=== PATIENT | male | born 1975 | race Two or more races ===

== ENCOUNTER 2025-05-04 10:41 | Emergency (ER) | payer OTHER ==
[~2025-05-04] VITALS: Ht 175.3 cm; Wt 96.2 kg
[2025-05-04 11:10] VITALS: O2SAT 99
[2025-05-04] MEDS ORDERED: NIFEDIPINE 10 MG CAPSULE PO ONE (11:30)
[2025-05-04 12:13] LABS: BASO % 0.8 % (0.1-1.2); EOS # 0.17 (0.04-0.54); EOS % 2.0 % (0.7-7.0); LYMPH # 1.22 (1.18-3.74); LYMPH % 14.7 % (19.3-53.1); MEAN PLATELET VOLUME 10.10 fl (9.4-12.4); MONO # 0.75 (0.24-0.82); MONO % 9.0 % (4.7-12.5); NEUT # 6.08 (1.56-6.13); NEUT % 73.1 % (34.0-71.1); RED CELL DISTRIBUTION WIDTH 12.1 % (11.6-14.4)
[2025-05-04 12:50] LABS: ALT/SGPT 47.0 U/L (12-78); AST/SGOT 21.0 U/L (15-37); BILIRUBIN TOTAL 0.91 mg/dL (0.3-1.2); BUN CREA RATIO 12.0 (7.0-25.0); CREATININE SERUM 1.24 mg/dL (0.70-1.30); GFR 61.96; GLOBULINA 3.2 G/DL (2.4-3.5); GLUCOSE FASTING 103.0 mg/dL (65-100); OSMOLALITY SERUM 284.0 MOSM/KG (275-295)
[2025-05-04 13:04] VITALS: BP 124/84
[2025-05-04] MEDS ORDERED: COZAAR25 MG PO (13:33)
== END 2025-05-04 14:02 | disposition home or self-care (01) ==
LOC: ER 10:41
PROVIDERS: General Practice
DX: I10 Essential (primary) hypertension (principal)

== ENCOUNTER 2025-05-12 07:33 | Outpatient (CLI) | payer OTHER ==
[~2025-05-12 07:33] MED LIST: COZAAR25 MG PO
[2025-05-12 08:40] LABS: BASO % 1.0 % (0.1-1.2); EOS # 0.31 (0.04-0.54); EOS % 4.0 % (0.7-7.0); LYMPH # 1.69 (1.18-3.74); LYMPH % 21.8 % (19.3-53.1); MEAN PLATELET VOLUME 10.50 fl (9.4-12.4); MONO # 0.73 (0.24-0.82); MONO % 9.4 % (4.7-12.5); NEUT # 4.92 (1.56-6.13); NEUT % 63.5 % (34.0-71.1); RED CELL DISTRIBUTION WIDTH 12.0 % (11.6-14.4)
[2025-05-12 08:42] LABS: ob NEGATIVE (NEGATIVE)
[2025-05-12 09:00] LABS: INR 1.01
[2025-05-12 09:56] LABS: ALT/SGPT 58.0 U/L (12-78); AST/SGOT 22.0 U/L (15-37); BILIRUBIN TOTAL 0.75 mg/dL (0.3-1.2); BUN CREA RATIO 20.0 (7.0-25.0); CREATININE SERUM 1.23 mg/dL (0.70-1.30); GFR 62.54; GLOBULINA 2.9 G/DL (2.4-3.5); GLUCOSE FASTING 86.0 mg/dL (65-100); OSMOLALITY SERUM 289.0 MOSM/KG (275-295)
== END 2025-05-12 07:36 | disposition home or self-care (01) ==
LOC: LAB 07:33
DX: K21.9 Gastro-esophageal reflux disease without esophagitis (principal); R14.0 Abdominal distension (gaseous); Z80.0 Family history of malignant neoplasm of digestive organs; Z12.11 Encounter for screening for malignant neoplasm of colon